=== PATIENT | female | born 1980 | race Caucasian/White ===

== ENCOUNTER 2018-06-02 09:43 | Emergency (ER) | END 2018-06-02 10:42 | disposition home or self-care (01) | DX: S59.901A Unspecified injury of right elbow, initial encounter (principal); W18.30XA Fall on same level, unspecified, initial encounter; Y93.89 Activity, other specified; Y92.89 Other specified places as the place of occurrence of the external cause; Y99.8 Other external cause status ==

== ENCOUNTER 2018-12-09 11:29 | Emergency (ER) | payer BC ==
[~2018-12-09] VITALS: Ht 172.7 cm; Wt 63.5 kg
--- NOTE | 2018-12-09 12:45 | NUR ---
PT WAS EVALUATED BY DR MARADIAGA. PT WAS D/C'd TO HOME. D/C INSTRUCTIONS GIVEN TO THE PT.
[2018-12-09 12:47] VITALS: BP 132/69
== END 2018-12-09 12:47 | disposition home or self-care (01) ==
LOC: ER 11:29
DX: J40 Bronchitis, not specified as acute or chronic (principal)
CPT/HCPCS: 71046; A4663

== ENCOUNTER 2021-07-18 16:54 | Emergency (ER) | payer BC ==
[~2021-07-18] VITALS: Ht 170.2 cm; Wt 61.2 kg
[2021-07-18 17:24] LABS: *BILIRUBIN,URIN NEGATIVE (NEGATIVE); *BLOOD, URINE NEGATIVE (NEGATIVE); *COLOR,URINE YELLOW (YELLOW); *KETONES,URINE NEGATIVE (NEGATIVE); *UROBILINOGEN,URINE 0.2 E.U./dl (NORMAL); LEUKOCYTE ESTERASE ,URINE TRACE (NEGATIVE); NITRITE, URINE NEGATIVE (NEGATIVE); UGLUCOSE NEGATIVE (NEGATIVE)
[2021-07-18 17:25] LABS: *URINE HCG, QUAL NEGATIVE (NEGATIVE)
[2021-07-18 17:29] LABS: *CLARITY,URINE SLIGHTLY HAZY (CLEAR); RBC,URINE 0-3 /HPF (0-3)
[2021-07-18 17:30] LABS: BACTERIA,URINE FEW /HPF (NONE SEEN); SQUAMOUS EPITHELIAL CELL,UR MODERATE /HPF (NONE SEEN)
--- NOTE | 2021-07-18 17:31 | NUR ---
Dr Lazaro at the bedside for MSE.
--- NOTE | 2021-07-18 19:02 | NUR ---
RECEIVED REPORT FROM ÁLVARO. PT NOTED TO BE IN BED, A/O X4, NO SOB OR LABORED BREATHING, AFEBRILE. DENIES ANY PAIN/DISCOMFORT AT THIS TIME.
[2021-07-18] MEDS ORDERED: HYDR-4209 PO (19:28)
[2021-07-18 19:36] VITALS: BP 124/76
--- NOTE | 2021-07-18 19:36 | NUR ---
Patient discharged to home in stable condition. Written and verbal after care instructions given. Patient verbalizes understanding of instructions. Stressed follow up or return to ER for worsening s/s. Steady gait, denies any pain/discomfort upon discharge.
== END 2021-07-18 19:37 | disposition home or self-care (01) ==
LOC: ER 17:00
DX: M54.50 Low back pain, unspecified (principal); N20.0 Calculus of kidney
CPT/HCPCS: 84703; 87086; A4663

== ENCOUNTER 2021-08-19 17:03 | Emergency (ER) | payer BC ==
[~2021-08-19] VITALS: Ht 170.2 cm; Wt 59.0 kg
[~2021-08-19 17:03] MED LIST: HYDR-4209 PO
--- NOTE | 2021-08-19 17:30 | NUR ---
Dr Matthew at the bedside for MSE.
--- NOTE | 2021-08-19 17:37 | NUR ---
Pt [id number] consent for waiver, placed in the chart.
[2021-08-19 18:49] VITALS: BP 106/69
--- NOTE | 2021-08-19 18:49 | NUR ---
Patient discharged to home in stable condition. Written and verbal after care instructions given. Patient verbalizes understanding of instructions. Stressed follow up or return to ER for worsening s/s.
== END 2021-08-19 19:00 | disposition home or self-care (01) ==
LOC: ER 17:05
DX: S30.0XXA Contusion of lower back and pelvis, initial encounter (principal); W00.0XXA Fall on same level due to ice and snow, initial encounter; Y93.23 Activity, snow (alpine) (downhill) skiing, snowboarding, sledding, tobogganing and snow tubing; Y92.838 Other recreation area as the place of occurrence of the external cause
CPT/HCPCS: 72220; A4663

== ENCOUNTER 2022-11-19 16:47 | Emergency (ER) | payer BC ==
[~2022-11-19] VITALS: Ht 170.2 cm; Wt 59.0 kg
--- NOTE | 2022-11-19 17:06 | NUR ---
Patient resting in bed, MD at bedside for exam, informed of plan of care at this time. No s/s of any distress noted. No drainage noted from breast during exam.
--- NOTE | 2022-11-19 17:18 | NUR ---
ACI GIVEN, STATES UNDERSTANDING. PATIENT NOW WOULD LIKE AN ULTRSOUND, WILL INFORM ER PROVIDER.
--- NOTE | 2022-11-19 17:23 | NUR ---
MD AT BEDSIDE TO TALK WITH PATIENT. TEST BEING ORDERED, URINE HAS BEEN PROVIDED.
[2022-11-19 17:37] LABS: *URINE HCG, QUAL NEGATIVE (NEGATIVE)
--- NOTE | 2022-11-19 17:58 | NUR ---
Patient results came back, informed of results and remains stable for discharge.
[2022-11-19 17:59] VITALS: BP 127/86
== END 2022-11-19 17:59 | disposition home or self-care (01) ==
LOC: ER 16:47
DX: N64.4 Mastodynia (principal); Z79.899 Other long term (current) drug therapy
CPT/HCPCS: 84703; A4663